=== PATIENT | male | born 1990 | race Caucasian/White ===

== ENCOUNTER → 2018-03-17 | Outpatient (CLI) | payer BC ==
[~2018-03-17] MED LIST: ALBU90OI; CEPH500 PO; CITA20 PO; CODACE30 PO; Flonase 0.05% N16 GM; GUAI600T33 PO; Polytrim Eye Dr10 ML LEFTEYE; QVAR7.3 G1 IH; RXCODACET PO
== END ==
LOC: PLD 07:38 → LAB SHORT 07:38
DX: L30.8 Other specified dermatitis (principal); D22.61 Melanocytic nevi of right upper limb, including shoulder
CPT/HCPCS: 88312

== ENCOUNTER → 2022-05-17 | Outpatient (CLI) | payer OTHER ==
[~2022-05-17] MED LIST changes: +ALBU2.5V5 INH; +Cymbalta20 MG PO; +FLUT1DIS5 INH; +LAMO100 PO; +LORA10ER PO; +PROP10 PO; +Ventolin/Prove6.7 GM INH
== END | disposition home or self-care (01) ==
LOC: LAB SHORT 14:45 → LAB 14:45
DX: J03.90 Acute tonsillitis, unspecified (principal)
CPT/HCPCS: 87081

== ENCOUNTER 2023-06-14 15:49 | Emergency (ER) | payer OTHER ==
[~2023-06-14] VITALS: Ht 167.6 cm; Wt 78.5 kg
[2023-06-14 16:02] VITALS: BP 143/86
[2023-06-14] MEDS ORDERED: BUPROPION XL150 M1 PO (17:46)
[2023-06-14] MEDS ORDERED: LAMICTAL200 MG PO (17:46)
[2023-06-14] MEDS ORDERED: Naltrexone HCl50 MG PO (17:52)
== END 2023-06-14 18:18 | disposition home or self-care (01) ==
LOC: ER 15:49
DX: M54.2 Cervicalgia (principal); M25.511 Pain in right shoulder; M25.551 Pain in right hip; M25.552 Pain in left hip; R07.81 Pleurodynia; M79.642 Pain in left hand; M54.9 Dorsalgia, unspecified; V89.2XXA Person injured in unspecified motor-vehicle accident, traffic, initial encounter; Z88.2 Allergy status to sulfonamides; Z88.5 Allergy status to narcotic agent; Z91.048 Other nonmedicinal substance allergy status
CPT/HCPCS: 71046; 72040; 73030; 73110; 73502; 99283-25

== ENCOUNTER 2024-05-25 21:43 | Emergency (ER) | payer OTHER ==
[~2024-05-25] VITALS: Ht 170.2 cm; Wt 68.0 kg
[~2024-05-25 21:43] MED LIST changes: +BUPROPION XL150 M1 PO; +LAMICTAL200 MG PO; +Naltrexone HCl50 MG PO
[2024-05-25 21:55] VITALS: BP 145/95
[2024-05-25] MEDS ORDERED: ANECREAM515 G1 TOP (23:15)
[2024-05-25] MEDS ORDERED: ALEVAZOL TOP (23:15)
[2024-05-25] MEDS ORDERED: Ketorolac Tromethamine 30mg Vial IM ONE (23:20)
== END 2024-05-25 23:40 | disposition home or self-care (01) ==
LOC: ER 21:43
DX: B35.6 Tinea cruris (principal); Z88.2 Allergy status to sulfonamides; Z88.8 Allergy status to other drugs, medicaments and biological substances; Z88.5 Allergy status to narcotic agent; Z79.899 Other long term (current) drug therapy; J45.909 Unspecified asthma, uncomplicated
CPT/HCPCS: 96372; 99282-25; J1885

== ENCOUNTER 2025-02-20 07:33 | Emergency (ER) | payer OTHER ==
[~2025-02-20] VITALS: Ht 170.2 cm; Wt 74.4 kg
[~2025-02-20 07:33] MED LIST changes: +ALEVAZOL TOP; +ANECREAM515 G1 TOP
[2025-02-20] MEDS ORDERED: Morphine Sulfate 4 MG/1 ML Injection IV ONE (07:45)
[2025-02-20] MEDS ORDERED: DiphenhydrAMINE HCl 50 MG/ML 1ML Vial IV ONE (07:45)
[2025-02-20 07:59] LABS: BASOPHILS ABSOLUTE AUTO 0.05 K/mm3 (0.00-0.23); BASOPHILS PERCENT AUTO 1 % (0-2); EOSINOPHILS ABSOLUTE AUTO 0.28 K/mm3 (0.00-0.68); EOSINOPHILS PERCENT AUTO 3 % (0-6); Hematocrit 39.8 % (37.0-53.0); Hemoglobin 14.2 g/dL (13.5-17.5); IMMATURE GRAN ABSOLUTE AUTO 0.03 K/mm3 (0.00-0.10); IMMATURE GRAN PERCENT AUTO 0 % (0-1); LYMPHOCYTES ABSOLUTE AUTO 1.65 K/mm3 (0.84-5.20); LYMPHOCYTES PERCENT AUTO 20 % (21-46); MONOCYTES ABSOLUTE AUTO 0.67 K/mm3 (0.16-1.47); MONOCYTES PERCENT AUTO 8 % (4-13); Mean Corpuscular HGB Conc 35.7 g/dL (31.5-36.5); Mean Corpuscular Volume 87 fL (80-100); NEUTROPHILS ABSOLUTE AUTO 5.69 K/mm3 (1.96-9.15); NEUTROPHILS PERCENT AUTO 68 % (41-73); NRBC ABSOLUTE 0.00 K/mm3 (0.00-0.02); NRBC Auto 0.0 /100 WBC (0.0-0.2); Platelet Count 265 K/mm3 (150-400); RDW Coefficient Variation 12.1 % (11.7-14.2); RDW Standard Deviation 38.6 fL (35.1-46.3)
[2025-02-20 08:08] LABS: Prothrombin Time Results 10.8 Sec (9.7-11.5)
[2025-02-20 08:16] LABS: Alanine Aminotransfer (ALT/SGP 15 U/L (12-78); Albumin, Blood 4.0 g/dL (3.4-5.0); Albumin/Globulin Ratio 1.2 (0.8-1.8); Anion Gap 8 mmol/L (3-11); Aspartate Aminotrans (AST/SGOT 9 U/L (12-37); Bilirubin, Total 0.4 mg/dL (0.1-1.0); Blood Urea Nitrogen 7 mg/dL (8-24); CO2, Blood 27 mmol/L (21-32); Calcium, Blood 9.4 mg/dL (8.5-10.1); Chloride, Blood 107 mmol/L (98-108); Creatinine, Blood 0.84 mg/dL (0.60-1.20); Ethanol (Alcohol), Blood, Med <3 mg/dL; Globulin, Blood 3.3 g/dL (2.2-4.0); Glucose, Blood 100 mg/dL (70-99); Potassium, Blood 3.6 mmol/L (3.5-5.5); Sodium, Blood 138 mmol/L (136-145); Total Protein, Blood 7.3 g/dL (6.4-8.2)
[2025-02-20] MEDS ORDERED: HYDROmorphone HCl/Pf 1MG SYR IV ONE (08:20)
[2025-02-20 08:30] VITALS: BP 136/89
[2025-02-20] MEDS ORDERED: Ondansetron HCl 2 MG / ML 2ML Vial IV ONE (08:40)
[2025-02-20] MEDS ORDERED: Ketorolac Tromethamine 30mg Vial IV ONE (08:40)
[2025-02-20] MEDS ORDERED: VALTREX50013 PO (09:11)
[2025-02-20] MEDS ORDERED: TADALAFIL5 M1 PO (09:11)
[2025-02-20] MEDS ORDERED: QUETIAPINE FUM10011 PO (09:12)
[2025-02-20] MEDS ORDERED: Metoclopramide HCl 5MG / ML 2ML Vial IV ONE (10:10)
[2025-02-20] MEDS ORDERED: METO10 PO (10:19)
[2025-02-20] MEDS ORDERED: Robaxin750 MG PO (10:19)
== END 2025-02-20 10:44 | disposition home or self-care (01) ==
LOC: ER 07:33
PROVIDERS: Student in an Organized Health Care Education/Training Program
DX: S06.0X0A Concussion without loss of consciousness, initial encounter (principal); S16.1XXA Strain of muscle, fascia and tendon at neck level, initial encounter; S20.212A Contusion of left front wall of thorax, initial encounter; S70.02XA Contusion of left hip, initial encounter; S40.012A Contusion of left shoulder, initial encounter; V89.2XXA Person injured in unspecified motor-vehicle accident, traffic, initial encounter; Z88.2 Allergy status to sulfonamides; Z88.1 Allergy status to other antibiotic agents; Z79.899 Other long term (current) drug therapy
CPT/HCPCS: 70450; 71260; 72125; 74177; 80053; 80320; 83690; 85025; 85610; 96374-59; 96375-59; 99285-25; A9270; J1171; J1200; J1885; J2270; J2405; J2765; Q9967